=== PATIENT | female | born 1965 | race Asian ===

== ENCOUNTER 2024-10-13 16:57 | Emergency (ER) | payer SELFPAY ==
[2024-10-13 17:12] VITALS: BP 132/83; PULSE 70; RESP 20; TEMP 98.3; BMI 21.6
[2024-10-13] MEDS ORDERED: IBUPROFEN 600 MG TABLET (FP) PO ONE (17:40)
[2024-10-13] MEDS: IBUPROFEN 600 MG TABLET (FP) PO ONE (17:40)
== END 2024-10-13 19:01 | disposition home or self-care (01) ==
LOC: FER 16:57
DX: S00.83XA Contusion of other part of head, initial encounter (principal); Y04.2XXA Assault by strike against or bumped into by another person, initial encounter
CPT/HCPCS: 70450-TC; 70486-TC; 99284-25